=== PATIENT | female | born 1970 | race Native Hawaiian/Other Pacific Islander ===

== ENCOUNTER 2019-04-17 17:01 | Emergency (ER) | payer BC ==
[2019-04-17 17:18] VITALS: BP 150/76
--- NOTE | 2019-04-17 17:24 | UC ---
Abdominal Pain Female HPI - HPI Summary HPI Summary: Patient is a 48-year-old female who presents to the urgent care with a chief complaint of having right upper quadrant pain. She reports that the pain was last night after she did a cheeseburger. She reports that she's been having this intermittent episodes of the same symptoms. Last night the patient had the right upper quadrant pain with rotation to the right shoulder and to the back. She denies any fever but she had some nausea without vomiting. Today she has not have any other symptoms. She denies any abdominal pain or chest pain. - History of Current Complaint Chief Complaint: UCChestPain Stated Complaint: RT SIDED CHEST/RIB AREA PAIN Time Seen by Provider: 04/17/19 17:08 Hx Obtained From: Patient Hx Last Menstrual Period: hyster Onset/Duration: Sudden Onset Timing: Intermittent Episodes Lasting: Severity Currently: None Pain Intensity: 0 Allergies/Adverse Reactions: Allergies Allergy/AdvReac Type Severity Reaction Status Date / Time MS Doxycycline [Doxycycline] Allergy Vomiting Verified 08/18/17 11:57 METHYLPREDNISONE Allergy Headache Uncoded 08/18/17 11:59 PMH/Surg Hx/FS Hx/Imm Hx - Surgical History Surgical History: Yes Surgery Procedure, Year, and Place: 2010 CERVICAL FUSION, [facility] [place]. LEFT OOPHRECTOMY FOR A CYST, [facility]. 2013 HYSTERECTOMY, [facility]. DISCECTOMY LOW BACK - Social History Alcohol Use: Occasionally Substance Use Type: None Smoking Status (MU): Never Smoked Tobacco Have You Smoked in the Last Year: No Review of Systems All Other Systems Reviewed And Are Negative: Yes Constitutional: Positive: Negative Skin: Positive: Negative Eyes: Positive: Negative ENT: Positive: Negative Respiratory: Positive: Negative Cardiovascular: Positive: Negative Gastrointestinal: Positive: Negative Genitourinary: Positive: Negative Motor: Positive: Negative Neurovascular: Positive: Other - History of back surgery Musculoskeletal: Positive: Negative Neurological: Positive: Negative Psychological: Positive: Negative Is Patient Immunocompromised?: No Physical Exam - Summary Physical Exam Summary: VITAL SIGNS: Reviewed. GENERAL: Patient is a overweight female who is lying comfortably in the examining table. Patient is not in any acute respiratory distress. HEAD AND FACE: Normocephalic and atraumatic. EYES: PERRLA, EOMI x 2, No injected conjunctiva. EARS: Hearing grossly intact. Ear canals and tympanic membranes are WNL. MOUTH: Oropharynx within normal limits. NECK: Supple, trachea is midline, no adenopathy, no JVD. CHEST: Symmetric, no tenderness at palpation LUNGS: Clear to auscultation bilaterally. No wheezing or crackles. CVS: RRR, S1 and S2 present, no murmurs or gallops appreciated. ABDOMEN: Soft, non-tender. No signs of distention. Positive bowel sounds. No rebound no guarding, and no masses palpated. No abdominal bruits or pulsations. EXTREMITIES: FROM in all major joints, no edema, no cyanosis or clubbing. NEURO: Alert and oriented x 3. No acute neurological deficits. Speech is normal. SKIN: Dry and warm Triage Information Reviewed: Yes Appearance: Well-Appearing Vital Signs: Initial Vital Signs Temp 98.7 F 04/17/19 17:15 Pulse 74 04/17/19 17:15 Resp 18 04/17/19 17:15 BP 150/76 04/17/19 17:15 Pulse Ox 99 04/17/19 17:15 Vital Signs Reviewed: Yes Diagnostics - EKG Cardiac Rate: NL Cardiac Rhythm: Sinus: Normal ST Segment: Normal - EKG is a sinus rhythm at [address] elevations. Normal axis. Abd Pain Female Course/Dx - Course Course Of Treatment: He since that the patient has a intermittent right upper quadrant pain with palpation to the right shoulder and right side of the back. Possibly the patient may have cholecystitis. At this time in the urgent care and she has no pain. I discussed the case with and Dr. Sky from surgery and he recommends to get an ultrasound of follow-up with his office. RUQ U/S IMPRESSION: #. Hepatosteatosis. #. Incompletely distended gallbladder with normal 0.2 cm wall is without gross pathologic finding. Negative for sonographic Dsouza's sign. #. Negative for biliary dilatation. #. Negative for ascites. Patient was recommended to follow up with primary care physician. Patient continues to be asymptomatic. I will give the patient a prescription for Prilosec. She was recommended that if any of the symptoms worsen she should go to the emergency room immediately for further workup and management. Patient understands and agrees. - Differential Dx/Diagnosis Provider Diagnosis: RUQ abdominal pain Discharge - Sign-Out/Discharge Documenting (check all that apply): Patient Departure All imaging exams completed and their final reports reviewed: Yes - Discharge Plan Condition: Stable Disposition: HOME Prescriptions: Omeprazole CAP (NF) [Prilosec CAP* 20 MG] 20 mg PO DAILY #20 angela. Patient Education Materials: Abdominal Pain (ED) Referrals: Maddie Salgado MD [Primary Care Provider] - Kimani Sky MD [Medical Doctor] - Additional Instructions: Patient was recommended to follow up with Dr. Sky. She was also recommended that if the symptoms return or worsens she should immediately go to the emergency room for further workup and management. - Billing Disposition and Condition Condition: STABLE Disposition: Home
== END 2019-04-17 18:30 | disposition home or self-care (01) ==
LOC: UCEAST 17:01
DX: R10.11 Right upper quadrant pain (principal)
CPT/HCPCS: 76705; 99212; G0463